=== PATIENT | male | born 1950 | race Caucasian/White ===

== ENCOUNTER 2017-04-21 07:50 | Day surgery (SDC) | payer BC ==
[~2017-04-21] VITALS: Ht 177.8 cm; Wt 63.7 kg
[2017-04-21] VITALS (17 sets, daily range): BP systolic 140–183; BP diastolic 68–84; PULSE 52–76; RESP 12–62; Ht 177.8 cm; Wt 63.7 kg
[~2017-04-21 07:50] MED LIST: CEFAZOLIN 1 GM INJ ONE
--- NOTE | 2017-04-21 08:01 | HPN ---
Date/Time of Note Date/Time of Note DATE: 04/21/17 TIME: 08:01 Interval H&P Admission Note Pt. seen H&P reviewed: No system changes EVONNE PAINTER MD Apr 21, 2017 08:01
[2017-04-21] MEDS ORDERED: THROMBIN 5000 UNIT VIAL ONE (08:27)
[2017-04-21] MEDS ORDERED: GELATIN SIZE 100 SPONGE ONE (08:27)
[2017-04-21] MEDS ORDERED: LIDOCAINE 1% (MPF) 10 ML INJ ONE (08:27)
[2017-04-21] MEDS ORDERED: HEPARIN 1000 UNITS/ML 10 ML INJ ONE (08:27)
[2017-04-21] MEDS ORDERED: LIDOCAINE 1% (MPF) 30 ML INJ ONE (08:29)
[2017-04-21 08:55] LABS: BASOPHILS % 0.2 % (0.0-2.0); EOSINOPHILS # 0.1 10^3/ul (0.0-0.5); EOSINOPHILS % 0.4 % (0.0-7.0); HEMATOCRIT 25.3 % (42.0-52.0); HEMOGLOBIN 8.4 g/dl (14.0-18.0); LYMPHOCYTES # 0.8 10^3/ul (0.8-2.9); MEAN CORPUSCULAR HEMOGLOBIN 35.3 pg (29.0-33.0); MEAN CORPUSCULAR HGB CONC 33.2 g/dl (32.0-37.0); MEAN CORPUSCULAR VOLUME 106.3 fl (82.0-101.0); MEAN PLATELET VOLUME 10.4 fl (7.4-10.4); MONOCYTE # 0.8 10^3/ul (0.3-0.9); MONOCYTES % 4.2 % (0.0-11.0); NEUTROPHIL # 16.9 10^3/ul (1.6-7.5); NEUTROPHILS % 87.5 % (39.0-77.0); PLATELET COUNT 169 10^3/UL (140-415); RED BLOOD COUNT 2.38 10^6/ul (4.70-6.10); RED CELL DISTRIBUTION WIDTH 16.5 % (11.5-14.5); WHITE BLOOD COUNT 19.4 10^3/ul (4.8-10.8)
[2017-04-21 09:03] LABS: HOLD TRANSMISSIONS 1
--- NOTE | 2017-04-21 09:05 | RADRPT ---
PROCEDURE: XR Chest. CLINICAL INDICATION: Preoperative . TECHNIQUE: Single frontal chest x-ray. COMPARISON: None. FINDINGS: The lungs are clear of acute infiltrates, edema, effusions, or masses. Skin fold artifacts are seen in the lateral thoraces bilaterally.. The cardiomediastinal silhouette is unremarkable. The osseous structures are intact. There is a right sided tunneled dialysis catheter in place with tip in the superior vena cava. IMPRESSION: No acute cardiopulmonary disease. Right sided tunneled dialysis catheter in place. RPTAT: GG .Levi Álvarez MD, MD Date Time Electronically viewed and signed by .Levi Álvarez MD, MD on 04/21/2017 09:05 .L/
[2017-04-21 09:29] LABS: INR 1.06; PROTIME 13.9 Sec (11.9-14.9); PT RATIO 1.1
[2017-04-21] MEDS ORDERED: LIDOCAINE 2% (SDV) 5 ML INJ ONE (09:34)
[2017-04-21] MEDS ORDERED: MIDAZOLAM 1 MG/ML 2 ML INJ ONE (09:34)
[2017-04-21] MEDS ORDERED: PROPOFOL 20 ML ONE (09:34)
[2017-04-21 09:36] LABS: PARTIAL THROMBOPLASTIN TIME 38.5 Sec (25.0-35.0)
[2017-04-21] MEDS ORDERED: FENTAnyl 50 MCG/ML VIAL ONE (09:51)
[2017-04-21] MEDS ORDERED: ONDANSETRON 4 MG INJ ONE (10:06)
[2017-04-21] MEDS ORDERED: FAMOTIDINE 20 MG INJ ONE (10:06)
[2017-04-21] MEDS ORDERED: DEXAMETHASONE 4 MG/ML 1 ML INJ ONE (10:06)
--- NOTE | 2017-04-21 10:51 | SIPON ---
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
[2017-04-21] MEDS ORDERED: FENTAnyl 50 MCG/ML VIAL IV PRN (11:30)
[2017-04-21] MEDS ORDERED: ONDANSETRON 4 MG INJ IV PRN (11:30)
[2017-04-21] MEDS ORDERED: OXYCODONE/ACETAMINOPHEN (5/325) TAB PO PRN (11:30)
[2017-04-21] MEDS ORDERED: HYDROmorphONE (0.2 MG/ML) 10ML SYG IV PRN ×2 (11:30)
[2017-04-21] MEDS: hydrALAzine 20 MG INJ IV PRN ×2 (12:19→13:07)
--- NOTE | 2017-04-21 12:59 | OPR ---
DATE OF OPERATION: 04/21/2017 PREOPERATIVE DIAGNOSIS: End-stage renal disease. POSTOPERATIVE DIAGNOSIS: End-stage renal disease. PROCEDURE PERFORMED: Creation of left upper arm AV graft. SURGEON: Evonne Vidal MD ANESTHESIA: General anesthesia. ESTIMATED BLOOD LOSS: Minimal. COMPLICATIONS: No intraprocedural complications. INDICATIONS: This 67-year-old gentleman with hypertension and cancer, who has end-stage renal disea se. He has an indwelling Perdomo and has bladder obstruction was cancer. He has a right IJ Perm-A-Ca th, which is being used for hemodialysis. 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 I did not go with the fistula just wanted to try and get something functioning soon as possible, given his multiple comorbidities and he did not have a g ood cephalic vein thought an upper arm AV graft to be ready for use a couple of weeks and then we ca n get a catheter out. DESCRIPTION OF PROCEDURE: Patient was brought to the operating room, placed on the table in supine position. Left arm was prepped and draped in the usual sterile fashion. I used ultrasound to ident hemanth the brachial artery at the elbow. I marked it on the skin then identified the axillary vein in the upper arm, they were both good caliber and patent. Once he was prepped and draped in the usual sterile fashion. He was already anesthetized with general LMA anesthesia. I then began by exposing the brachial artery just above the elbow. I made a longitudinal incision over the brachial artery and carefully dissected down through subcutaneous tissues using electrocautery and I carefully disse cted out the brachial artery, it was good artery was 6 mm in diameter, soft and had a good pulse. I then went to the upper arm and made an incision over the axillary vein in the upper arm and dissect ed down through subcutaneous tissue, again using electrocautery and a combination of blunt and sharp dissection. I carefully dissected out the axillary vein. I dissected it away from the axillary ar carmen. There was also good caliber vein was doubly 45 mm in diameter. I flushed it exposed, I then tunneled a 6 mm Artegraft between the 2 incisions using a Holly-Wick tunneler. Once the graft was t unneled I began with the venous anastomosis. I clamped the axillary vein proximally and distally. About 1 to 1.5 cm long venotomy nice spatulated the end of the graft to fit the venotomy and anastom osed the upper end of the graft to the side of the vein using 6-0 Prolene suture in a running standa rd vascular surgical fashion. I removed the clamps. I flushed the graft it was flushed quite easil y. There was good hemostasis at the anastomosis. I then went to the arterial anastomosis. I clamp ed the brachial artery proximally and distally, made an 8 mm long anterior arteriotomy, then cut the end of the graft to fit the arteriotomy and the anastomosed the proximal end of the graft to the si de of the brachial artery, again using 6-0 Prolene suture in a running standard vascular surgical fa shion. I removed the clamps. There was a good thrill and there was good hemostasis. Good 2+ radia l pulses in and then closed the skin incisions in 2 layers using an inner layer of 3-0 Vicryl and an outer layer of 4-0 Monocryl subcuticular suture. A sterile dressing was applied. The patient was then extubated in the operating room and transferred to the recovery room in stable condition. He t olerated the procedure well without any complications. Dictated By: EVONNE OLIVAS/LAXMI Conf#: [id number] DID#: [id number] CC: VANESSA ROGER MD;*EndCC*
--- NOTE | 2017-04-21 20:34 | RADRPT ---
Vent Rate: 63 bpm RR Interval: 0 msec NV Interval: 180 msec QRS Duration: 92 msec QT Interval: 416 msec QTC Interval: 425 msec P-R-T [place]: 60 - 57 - 52 degrees Normal sinus rhythm Normal ECG Electronically Signed By: Aden Connor [id number]
== END 2017-04-21 16:45 | disposition home or self-care (01) ==
LOC: SDS 07:50
PROVIDERS: ATTEND Surgery Vascular Surgery
DX: I12.0 Hypertensive chronic kidney disease with stage 5 chronic kidney disease or end stage renal disease (principal); N18.6 End stage renal disease
CPT/HCPCS: 36830; 71010; 84132; 85025; 85610; 85730; 93005; C1768; J0360; J0690; J1644; J2250; J3010; J1100; J2405